=== PATIENT | female | born 1995 | race Caucasian/White ===

== ENCOUNTER 2018-01-05 03:02 | Emergency (ER) | payer OTHER ==
[~2018-01-05] VITALS: Ht 165.1 cm; Wt 72.0 kg
[~2018-01-05 03:02] MED LIST: HYDROCODON-ACE1 EAC7 PO; MULTI-DAY VITA1 EACH PO; NOHOMEMEDS; OMEPRAZOLE20 M2 PO
[2018-01-05] MEDS ORDERED: BACTRIM,SEPT1 TABLET PO (03:30)
[2018-01-05 03:59] VITALS: BP 128/85
== END 2018-01-05 03:59 | disposition home or self-care (01) ==
LOC: EME 03:02
PROC: 0H9KXZZ Drainage of Right Lower Leg Skin, External Approach (ICD-10-PCS; principal; 2018-01-05)
DX: S90.561A Insect bite (nonvenomous), right ankle, initial encounter (principal); W57.XXXA Bitten or stung by nonvenomous insect and other nonvenomous arthropods, initial encounter; L03.115 Cellulitis of right lower limb; F17.200 Nicotine dependence, unspecified, uncomplicated
CPT/HCPCS: 99281; 99283

== ENCOUNTER 2018-01-17 23:04 | Emergency (ER) | payer OTHER ==
[~2018-01-17] VITALS: Ht 165.1 cm; Wt 74.3 kg
[~2018-01-17 23:04] MED LIST changes: +BACTRIM,SEPT1 TABLET PO
[2018-01-18 00:30] LABS: HEMATOCRIT 40.7 % (36.0-46.0); HEMOGLOBIN 14.5 G/DL (11.9-15.5); MCH 33.2 PG (29.0-34.0); MCHC 35.6 G/DL (30.0-36.0); MCV 93.1 FL (83-99); PLATELET COUNT 245 K/uL (156-360); RBC DIS.WIDTH-SD 44.5 % (39-53); RED BLOOD COUNT 4.37 M/uL (3.80-5.20)
[2018-01-18 00:45] LABS: ALBUMIN 4.5 g/dL (3.2-4.8)
[2018-01-18 00:46] LABS: CHLORIDE 109 mEq/L (99-109); POTASSIUM 3.8 mEq/L (3.7-5.4); SODIUM 142 mEq/L (136-147)
[2018-01-18 00:48] LABS: GLUCOSE 99 mg/dL (70-99); TOTAL PROTEIN 7.5 g/dL (6.4-8.3)
[2018-01-18 00:50] LABS: TOTAL BILIRUBIN 0.2 mg/dL (0.0-1.0)
[2018-01-18 00:51] LABS: ALKALINE PHOSPHATASE 73 IU/L (3-129)
[2018-01-18 00:52] LABS: CREATININE 0.7 mg/dL (0.6-1.3); GFR ESTIMATE (CALCULATED) > 59 mL/min/
[2018-01-18 00:53] LABS: AST (GOT) 19 IU/L (2-34); UREA NITROGEN (BUN) 7 mg/dL (9-23)
[2018-01-18 00:54] LABS: ALT (GPT) 11 IU/L (3-49)
[2018-01-18 00:55] LABS: APPEARANCE CLEAR ((CLEAR)); BILIRUBIN NEGATIVE; BLOOD NEGATIVE; COLOR STRAW ((YELLOW)); GLUCOSE (STRIP) NEGATIVE; KETONES NEGATIVE; LEUKOCYTES NEGATIVE; NITRITE NEGATIVE; PROTEIN (STRIP) NEGATIVE; UCUL ADDED? NO; UROBILINOGEN 0.2 MG/DL (0.2-1.0)
[2018-01-18] MEDS ORDERED: NORCO 5/3251 TABLET PO (01:06)
[2018-01-18 01:30] VITALS: BP 119/68
== END 2018-01-18 01:30 | disposition home or self-care (01) ==
LOC: TRA 23:04 → EME 23:04 → TRA 01-18 01:30
PROVIDERS: Physician Assistant
DX: S92.511A Displaced fracture of proximal phalanx of right lesser toe(s), initial encounter for closed fracture (principal); S30.0XXA Contusion of lower back and pelvis, initial encounter; S70.02XA Contusion of left hip, initial encounter; S40.022A Contusion of left upper arm, initial encounter; J45.990 Exercise induced bronchospasm; V09.20XA Pedestrian injured in traffic accident involving unspecified motor vehicles, initial encounter; Z87.891 Personal history of nicotine dependence
CPT/HCPCS: 72100; 73060; 73502; 73610; 73630; 80053; 81003; 85027; 99281; 99284